=== PATIENT | female | born 1960 | race Hispanic/Latino ===

== ENCOUNTER → 2019-02-04 | Day surgery (SDC) | payer OTHER ==
[~2019-02-04] MED LIST: CALCIUM PO; GLUCAGON FOR INJ 1 MG VIAL ONE; HYOSCYAMINE 0.125 MG TAB ONE; MIDAZOLAM HCL 2 MG/2 ML VIAL ONE; MULTIVITAMIN; OMEGA-31000 MG PO; ONDANSETRON HCL INJ 2MG/ML 2ML 2 MG/ML VIAL ONE; PROMETHAZINE HCL (IM) 25 MG/ML VIAL ONE; PROPOFOL IV EMULSION 10 MG/ML 50 ML VIAL ONE; VITAMIN D1000 UNI1 PO
--- OUTSIDE RECORDS SUMMARY | 2019-02-04 12:10 | XMS REPORT ---
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
--- OUTSIDE RECORDS SUMMARY | 2019-02-04 12:10 | XMS REPORT | Continuity of Care Document ---
Author Author [email or web address] Organization [email or web address] Address Unknown Phone Unavailable Care Team Providers Care Hide Buffer Name Role Phone [employer] Unavailable Unavailable Problems Problem Status Onset Date Classification Date Reported Comments Source Severe obesity Active Problem 01/29/2019 [facility] High cholesterol Active Problem 01/29/2019 [facility] Encounter for screening for malignant neoplasm of colon Active Diagnosis 01/22/2019 [facility] Encntr for general adult medical exam w/o abnormal findings Active Diagnosis 01/22/2019 [facility] Medications No Data Provided for This Section Allergies, Adverse Reactions, Alerts Substance Category Reaction Severity Reaction type Status Date Reported Comments Source N.K.D.A. Adverse Reaction Info Not Available Adverse Reaction Active 01/14/2019 [facility] Immunizations No Data Provided for This Section Results No Data Provided for This Section Pathology Reports No Data Provided for This Section Diagnostic Reports No Data Provided for This Section Consultation Notes No Data Provided for This Section Discharge Summaries No Data Provided for This Section History and Physicals No Data Provided for This Section Vital Signs Vital Sign Value Date Comments Source Weight 219 01/14/2019 [facility] Height 61 01/14/2019 [facility] Heart Rate 76 01/14/2019 [facility] Diastolic (mm Hg) 68 01/14/2019 [facility] Systolic (mm Hg) 122 01/14/2019 [facility] Encounters No Data Provided for This Section Procedures No Data Provided for This Section Assessment and Plan No Data Provided for This Section Plan of Care No Data Provided for This Section Social History No Data Provided for This Section Family History No Data Provided for This Section Advance Directives No Data Provided for This Section Functional Status No Data Provided for This Section
[2019-02-04 16:15] VITALS: BP 154/88
--- NOTE | 2019-02-04 16:17 | Operative Report ---
DATE OF PROCEDURE: 02/04/2019 SURGEON: Moncho Levi MD PROCEDURE: Colonoscopy with polypectomy. INDICATIONS FOR COLONOSCOPY: Colorectal cancer screening. MEDICATIONS: The patient was done under MAC, please see anesthesiologist's note. PROCEDURE IN DETAIL: With the patient in left lateral decubitus position, the flexible fiberoptic Olympus colonoscope was inserted into the rectum with ease and advanced all the way to the cecum. It was then withdrawn slowly. Mucosa overlying the cecum and ascending colon appeared to be within normal limits. One minute polyp was hot biopsied from the transverse colon and polypectomy site was hemoclipped. The rest of the transverse as well as the descending colon grossly appeared to be within normal limits. Some minimal diverticular disease was noted in the distal descending and the sigmoid colon. Two minute polyps were hot biopsied from the sigmoid colon. The rectum grossly appeared to be within normal limits. The scope was then retroflexed into the distal rectum and small internal hemorrhoids were noted, none of which was actively bleeding. The scope was then straightened out, it was subsequently withdrawn. The patient tolerated the procedure well. Of note, the colon was excessively irritable and spastic and suboptimally visualized. IMPRESSION: 1. Transverse colon polyp, hot biopsied, site hemoclipped. 2. Sigmoid colon polyps x2, hot biopsied. 3. Diverticulosis. 4. Internal hemorrhoids, none actively bleeding. PLAN: Follow up histology. Initiate high-fiber, low-fat diet. Initiate high-fiber supplement. The patient might benefit from a followup colonoscopy in 5 years. Moncho Levi MD [facility] [place] /[id number] cc: Meg Sellers DO
== END | disposition home or self-care (01) ==
LOC: OR 12:07
PROVIDERS: ATTEND Internal Medicine Gastroenterology
DX: R14.0 Abdominal distension (gaseous) (principal); K63.5 Polyp of colon; K57.30 Diverticulosis of large intestine without perforation or abscess without bleeding; K64.8 Other hemorrhoids; R03.0 Elevated blood-pressure reading, without diagnosis of hypertension; Z68.41 Body mass index [BMI] 40.0-44.9, adult
CPT/HCPCS: 45384; J2250; J2405; J2550; 44391